=== PATIENT | male | born 1940 | race African-American/Black ===

== ENCOUNTER 2019-12-04 11:28 | Emergency (ER) | payer OTHER ==
[~2019-12-04] VITALS: Ht 190.5 cm; Wt 97.1 kg
[2019-12-04 11:49] VITALS: BP 170/77; Ht 190.5 cm; Wt 97.1 kg
== END 2019-12-04 13:06 | disposition home or self-care (01) ==
LOC: ED 11:28
DX: S31.819A Unspecified open wound of right buttock, initial encounter (principal); X58.XXXA Exposure to other specified factors, initial encounter; Y93.89 Activity, other specified; Y92.89 Other specified places as the place of occurrence of the external cause; Y99.8 Other external cause status
CPT/HCPCS: 90715